=== PATIENT | female | born 1990 | race African-American/Black ===

== ENCOUNTER 2019-10-10 10:32 | Emergency (ER) | payer MEDICAID, OTHER ==
[~2019-10-10] VITALS: Ht 180.3 cm; Wt 104.0 kg
[2019-10-10] MEDS ORDERED: SODIUM CHLORIDE 0.9% 1,000 ML IV ONE (12:19)
[2019-10-10] MEDS ORDERED: KETOROLAC 30MG/ML VIAL IV STA (12:19)
[2019-10-10] MEDS ORDERED: ONDANSETRON HCL 4MG/2ML INJ IV STA ×2 (12:19→15:16)
[2019-10-10 12:39] LABS: BASOPHILS % 0.5 % (0.0-2.0); EOSINOPHILS % 0.5 % (0.0-5.0); HEMATOCRIT. 34.3 % (36.0-48.0); HEMOGLOBIN. 11.1 g/dL (12.0-16.0); LYMPHOCYTES % 18.3 % (20.0-50.0); MEAN CORPUSCULAR HEMOGLOBIN 24.8 pg (28.0-32.0); MEAN CORPUSCULAR VOLUME 76.8 fL (81.0-99.0); MEAN PLATELET VOLUME 9.4 fl (7.4-10.4); MONOCYTES % 10.2 % (2.0-8.0); NEUTROPHILS % 70.5 % (40.0-76.0); PLATELET 350 x1000/uL (130-400); RED BLOOD CELL COUNT 4.46 mill/uL (4.2-5.4); RED CELL DISTRIBUTION WIDTH 17.4 % (11.6-14.6)
[2019-10-10 12:42] LABS: CHLORIDE 106 mEq/L (98-107)
[2019-10-10 12:46] LABS: ETHANOL BLOOD < 10 mg/dL
[2019-10-10 13:42] LABS: CLARITY URINE CLOUDY (CLEAR); COLOR URINE YELLOW (YELLOW); KETONES URINE TRACE (NEGATIVE); LEUKOCYTE ESTERASE URINE NEGATIVE (NEGATIVE); NITRITE URINE NEGATIVE (NEGATIVE); OCCULT BLOOD URINE 1+ (NEGATIVE); PH URINE 5.5 (4.5-8.0); PROTEIN URINE 1+ (NEGATIVE); SPECIFIC GRAVITY URINE 1.034 (1.005-1.030)
[2019-10-10 14:16] LABS: PHENCYCLIDINE URINE SCREEN NEGATIVE (NEGATIVE)
[2019-10-10 14:17] LABS: *AMPHETAMINES SCREEN URINE NEGATIVE (NEGATIVE); *BARBITURATES SCREEN URINE NEGATIVE (NEGATIVE); *BENZODIAZEPINES SCREEN URINE NEGATIVE (NEGATIVE); *COCAINE SCREEN URINE NEGATIVE (NEGATIVE); METHADONE URINE SCREEN NEGATIVE (NEGATIVE)
[2019-10-10 14:18] LABS: OPIATES URINE SCREEN NEGATIVE (NEGATIVE)
[2019-10-10 14:24] LABS: CANNABINOID URINE SCREEN PRESUMTIVE POSITIVE (NEGATIVE)
[2019-10-10] MEDS ORDERED: MORPHINE SULFATE 4 MG/ML CPJ (NOT FOR IM USE) IV STA (15:16)
[2019-10-10 15:44] VITALS: BP 133/65
== END 2019-10-10 15:45 | disposition home or self-care (01) ==
LOC: ER 10:32
DX: R10.33 Periumbilical pain (principal); Z87.891 Personal history of nicotine dependence
CPT/HCPCS: 36415; 74176; 80053; 80305; 80320; 81003; 81025; 83690; 85025; 96374; 96375; 96376; 99285; J1885; J2270; J2405; J7030; G0480

== ENCOUNTER 2019-12-23 16:15 | Inpatient (IN) | payer MEDICAID ==
[~2019-12-23] VITALS: Ht 152.4 cm; Wt 91.0 kg
[~2019-12-23 16:15] MED LIST: CIPR-263 MT; DOCU-150 PO; IBUP-2029 MT; METR500T MT
[2019-12-23] MEDS ORDERED: ONDANSETRON HCL 4MG/2ML INJ IV STA ×2 (17:07→21:05)
[2019-12-23] MEDS ORDERED: SODIUM CHLORIDE 0.9% 1,000 ML IV ONE (17:07)
[2019-12-23] MEDS ORDERED: MORPHINE SULFATE 4 MG/ML CPJ (NOT FOR IM USE) IV STA ×2 (17:07→21:05)
[2019-12-23 17:38] LABS: HEMATOCRIT. 35.3 % (36.0-48.0); MEAN CORPUSCULAR HEMOGLOBIN 24.3 pg (28.0-32.0); MEAN CORPUSCULAR VOLUME 78.1 fL (81.0-99.0); MEAN PLATELET VOLUME 10.3 fl (7.4-10.4); PLATELET 316 x1000/uL (130-400); RED BLOOD CELL COUNT 4.52 mill/uL (4.2-5.4)
[2019-12-23 17:44] LABS: CHLORIDE 111 mEq/L (98-107)
[2019-12-23 17:58] LABS: HCG SCREEN NEGATIVE
[2019-12-23] MEDS ORDERED: MORPHINE SULFATE 4 MG/ML CPJ (NOT FOR IM USE) IV ONE (18:15)
[2019-12-23 18:46] LABS: CLARITY URINE CLEAR (CLEAR); COLOR URINE YELLOW (YELLOW); KETONES URINE 3+ (NEGATIVE); LEUKOCYTE ESTERASE URINE 2+ (NEGATIVE); NITRITE URINE NEGATIVE (NEGATIVE); OCCULT BLOOD URINE 3+ (NEGATIVE); PH URINE 5.5 (4.5-8.0); PROTEIN URINE NEGATIVE (NEGATIVE); SPECIFIC GRAVITY URINE 1.016 (1.005-1.030); UROBILINOGEN URINE 0.2 E.U./dL (0.2-1.0)
[2019-12-23 18:50] LABS: PLATELET ESTIMATE NORMAL
[2019-12-23] MEDS ORDERED: KCL 10MEQ/50ML PREMIX 50 ML IV ONE (19:30)
[2019-12-23] MEDS ORDERED: CEFTRIAXONE 1 G PREMIX 50 ML IV ONE (19:30)
[2019-12-23] MEDS ORDERED: POTASSIUM CHLORIDE 20MEQ TABLET SR PO ONE (19:30)
[2019-12-23] MEDS ORDERED: ONDANSETRON HCL 4MG/2ML INJ IV PRN (22:30)
[2019-12-23] MEDS ORDERED: CLONIDINE 0.1MG TABLET PO PRN (22:30)
[2019-12-23] MEDS ORDERED: MAGNESIUM/ALUMINUM HYDROXIDE/SIMETHICONE 30ML UDC PO PRN (22:30)
[2019-12-23] MEDS ORDERED: LEVOFLOXACIN 500MG PREMIX 100 ML IV SCH (22:30)
[2019-12-23] MEDS ORDERED: PANTOPRAZOLE SODIUM 40 MG/VIAL IV SCH (22:30)
[2019-12-23] MEDS ORDERED: ACETAMINOPHEN 325MG TABLET PO PRN (22:30)
[2019-12-23] MEDS ORDERED: KETOROLAC 15MG/ML VIAL IV PRN (22:30)
[2019-12-23] MEDS ORDERED: DEXT 5%/0.45% NACL KCL 10MEQ/L 1,000 ML IV SCH (23:30)
[2019-12-24 03:35] VITALS: BP 132/82
[2019-12-24] MEDS ORDERED: AMLODIPINE 10MG TABLET PO SCH (09:00)
[2019-12-24 09:26] LABS: *AMPHETAMINES SCREEN URINE NEGATIVE (NEGATIVE); *BARBITURATES SCREEN URINE NEGATIVE (NEGATIVE); *BENZODIAZEPINES SCREEN URINE NEGATIVE (NEGATIVE); METHADONE URINE SCREEN NEGATIVE (NEGATIVE)
[2019-12-24 09:27] LABS: PHENCYCLIDINE URINE SCREEN NEGATIVE (NEGATIVE)
[2019-12-24 09:29] LABS: *COCAINE SCREEN URINE NEGATIVE (NEGATIVE)
[2019-12-24 09:52] LABS: CANNABINOID URINE SCREEN PRESUMTIVE POSITIVE (NEGATIVE); OPIATES URINE SCREEN PRESUMTIVE POSITIVE (NEGATIVE)
[2019-12-24] MEDS ORDERED: LEVOFLOXACIN 500MG PREMIX 100 ML IV SCH (21:00)
== END 2019-12-24 05:09 | disposition left against medical advice (07) | DRG 251 ==
LOC: ER 16:20 → MICUSO 20:55 → EDBEDREQSVC 22:05 → 6EST 12-24 04:21
PROVIDERS: ADMIT Hospitalist; ATTEND Hospitalist
DX: R10.9 Unspecified abdominal pain (principal); Z79.2 Long term (current) use of antibiotics; Z79.899 Other long term (current) drug therapy; N39.0 Urinary tract infection, site not specified; E87.6 Hypokalemia
CPT/HCPCS: 36415; 71045; 74176; 80053; 80305; 81003; 84703; 85025; 93005; 99285; C9113; J0696; J1956; J2270; J2405; J3480; J7030

== ENCOUNTER 2020-05-26 11:56 | Emergency (ER) | payer MEDICAID ==
[~2020-05-26] VITALS: Ht 180.3 cm; Wt 105.0 kg
[2020-05-26] MEDS ORDERED: KETOROLAC 30MG/ML VIAL IV STA (12:12)
[2020-05-26] MEDS ORDERED: ONDANSETRON HCL 4MG/2ML INJ IV STA ×2 (12:12→14:16)
[2020-05-26] MEDS ORDERED: LORAZEPAM 2MG/ML CPJ IV ONE (12:15)
[2020-05-26] MEDS ORDERED: SODIUM CHLORIDE 0.9% 1,000 ML IV ONE (12:15)
[2020-05-26 12:25] LABS: BASOPHILS % 0.6 % (0.0-2.0); EOSINOPHILS % 0.1 % (0.0-5.0); HEMATOCRIT. 36.7 % (36.0-48.0); HEMOGLOBIN. 11.5 g/dL (12.0-16.0); LYMPHOCYTES % 10.8 % (20.0-50.0); MEAN CORPUSCULAR HEMOGLOBIN 23.8 pg (28.0-32.0); MEAN CORPUSCULAR VOLUME 75.9 fL (81.0-99.0); MEAN PLATELET VOLUME 8.8 fl (7.4-10.4); MONOCYTES % 5.1 % (2.0-8.0); NEUTROPHILS % 83.4 % (40.0-76.0); PLATELET 345 x1000/uL (130-400); RED BLOOD CELL COUNT 4.84 mill/uL (4.2-5.4); RED CELL DISTRIBUTION WIDTH 17.5 % (11.6-14.6)
[2020-05-26 12:36] LABS: HCG SCREEN NEGATIVE
[2020-05-26 12:45] LABS: PROTHROMBIN TIME 10.3 sec (9.6-11.0)
[2020-05-26 12:46] LABS: CLARITY URINE CLEAR (CLEAR); COLOR URINE YELLOW (YELLOW); KETONES URINE 1+ (NEGATIVE); LEUKOCYTE ESTERASE URINE NEGATIVE (NEGATIVE); NITRITE URINE NEGATIVE (NEGATIVE); OCCULT BLOOD URINE 1+ (NEGATIVE); PROTEIN URINE TRACE (NEGATIVE); SPECIFIC GRAVITY URINE 1.025 (1.005-1.030); UROBILINOGEN URINE 0.2 E.U./dL (0.2-1.0)
[2020-05-26 12:52] LABS: CHLORIDE 108 mEq/L (98-107)
[2020-05-26] MEDS ORDERED: MORPHINE SULFATE 4 MG/ML CPJ (NOT FOR IM USE) IV STA (14:16)
[2020-05-26 15:32] VITALS: BP 125/68
== END 2020-05-26 16:15 | disposition home or self-care (01) ==
LOC: ER 12:24
DX: R10.9 Unspecified abdominal pain (principal)
CPT/HCPCS: 36415; 74176; 80053; 81003; 81025; 83690; 84703; 85025; 85610; 96361; 96374; 96375; 96376; 99285; J1885; J2060; J2270; J2405; J7030

== ENCOUNTER 2020-09-09 10:25 | Emergency (ER) | payer MEDICAID ==
[~2020-09-09] VITALS: Ht 180.3 cm; Wt 104.0 kg
[2020-09-09 10:36] VITALS: BP 142/93
[2020-09-09] MEDS ORDERED: TOPUD PO (10:41)
[2020-09-09] MEDS ORDERED: KETOROLAC 60MG/2ML VIAL IM ONE (11:00)
[2020-09-09] MEDS ORDERED: IBUPROFEN 400MG TABLET PO ONE (11:15)
[2020-09-09] MEDS ORDERED: ACETAMINOPHEN 325MG TABLET PO ONE (11:15)
[2020-09-09] MEDS ORDERED: NAPR-681 MT (11:50)
== END 2020-09-09 12:52 | disposition home or self-care (01) ==
LOC: ER 10:25
DX: M25.561 Pain in right knee (principal); F12.10 Cannabis abuse, uncomplicated
CPT/HCPCS: 29505; 73562; 99283; J1885

== ENCOUNTER 2020-11-08 08:31 | Emergency (ER) | payer MEDICAID ==
[~2020-11-08] VITALS: Ht 180.3 cm; Wt 105.0 kg
[~2020-11-08 08:31] MED LIST changes: +NAPR-681 MT; +TOPUD PO
[2020-11-08] MEDS ORDERED: MORPHINE SULFATE 4 MG/ML CPJ (NOT FOR IM USE) IV STA (09:02)
[2020-11-08] MEDS ORDERED: DICYCLOMINE 10 MG/5 ML ORAL SYR PO ONE (09:15)
[2020-11-08] MEDS ORDERED: VISCOUS LIDOCAINE 2% 15 ML UDC PO ONE (09:15)
[2020-11-08] MEDS ORDERED: MAGNESIUM/ALUMINUM HYDROXIDE/SIMETHICONE 30ML UDC PO ONE (09:15)
[2020-11-08 09:25] LABS: BASOPHILS % 0.2 % (0.0-2.0); HEMATOCRIT. 34.5 % (36.0-48.0); MEAN CORPUSCULAR HEMOGLOBIN 23.9 pg (28.0-32.0); MEAN PLATELET VOLUME 8.7 fl (7.4-10.4); MONOCYTES % 13.2 % (2.0-8.0); NEUTROPHILS % 75.6 % (40.0-76.0); PLATELET 372 x1000/uL (130-400); RED CELL DISTRIBUTION WIDTH 17.8 % (11.6-14.6)
[2020-11-08 09:33] LABS: CHLORIDE 108 mEq/L (98-107)
[2020-11-08] MEDS ORDERED: MORPHINE SULFATE 4 MG/ML CPJ (NOT FOR IM USE) IV ONE (10:45)
[2020-11-08 10:47] LABS: HCG SCREEN NEGATIVE
[2020-11-08] MEDS ORDERED: OMEP20TA2 PO (12:47)
[2020-11-08 13:24] VITALS: BP 119/62
== END 2020-11-08 13:26 | disposition home or self-care (01) ==
LOC: ER 08:31
DX: R07.89 Other chest pain (principal); F12.10 Cannabis abuse, uncomplicated
CPT/HCPCS: 36415; 71045; 74176; 80053; 81025; 83690; 83880; 84484; 84703; 85025; 93005; 96374; 96376; 99285; J2270; Z7610

== ENCOUNTER 2021-01-01 02:41 | Emergency (ER) | payer MEDICAID ==
[~2021-01-01] VITALS: Ht 180.3 cm; Wt 105.0 kg
[~2021-01-01 02:41] MED LIST changes: +OMEP20TA2 PO
[2021-01-01] MEDS ORDERED: ONDANSETRON HCL 4MG/2ML INJ IV STA (03:14)
[2021-01-01] MEDS ORDERED: MORPHINE SULFATE 4 MG/ML CPJ (NOT FOR IM USE) IV STA (03:14)
[2021-01-01] MEDS ORDERED: SODIUM CHLORIDE 0.9% 1,000 ML IV ONE (03:15)
[2021-01-01 03:51] LABS: BASOPHILS % 0.4 % (0.0-2.0); HEMATOCRIT. 35.6 % (36.0-48.0); HEMOGLOBIN. 11.5 g/dL (12.0-16.0); LYMPHOCYTES % 19.4 % (20.0-50.0); MEAN CORPUSCULAR HEMOGLOBIN 23.8 pg (28.0-32.0); MEAN CORPUSCULAR VOLUME 73.4 fL (81.0-99.0); MEAN PLATELET VOLUME 8.7 fl (7.4-10.4); NEUTROPHILS % 69.2 % (40.0-76.0); PLATELET 408 x1000/uL (130-400); RED BLOOD CELL COUNT 4.85 mill/uL (4.2-5.4); RED CELL DISTRIBUTION WIDTH 17.5 % (11.6-14.6)
[2021-01-01 03:59] LABS: CHLORIDE 106 mEq/L (98-107)
[2021-01-01 04:03] LABS: ETHANOL BLOOD < 10 mg/dL
[2021-01-01 04:05] LABS: HCG SCREEN NEGATIVE
[2021-01-01 04:12] LABS: CLARITY URINE CLOUDY (CLEAR); COLOR URINE YELLOW (YELLOW); KETONES URINE 2+ (NEGATIVE); LEUKOCYTE ESTERASE URINE NEGATIVE (NEGATIVE); NITRITE URINE NEGATIVE (NEGATIVE); OCCULT BLOOD URINE 3+ (NEGATIVE); PH URINE 5.5 (4.5-8.0); PROTEIN URINE 1+ (NEGATIVE); SPECIFIC GRAVITY URINE 1.034 (1.005-1.030)
[2021-01-01] MEDS ORDERED: POTASSIUM CHLORIDE 20MEQ TABLET SR PO ONE (04:15)
[2021-01-01] MEDS ORDERED: MAGNESIUM/ALUMINUM HYDROXIDE/SIMETHICONE 30ML UDC PO ONE (04:15)
[2021-01-01] MEDS ORDERED: FAMOTIDINE 20MG/2ML VIAL IV ONE (04:15)
[2021-01-01 04:32] LABS: *BARBITURATES SCREEN URINE NEGATIVE (NEGATIVE)
[2021-01-01 04:33] LABS: *AMPHETAMINES SCREEN URINE NEGATIVE (NEGATIVE); *BENZODIAZEPINES SCREEN URINE NEGATIVE (NEGATIVE); *COCAINE SCREEN URINE NEGATIVE (NEGATIVE); METHADONE URINE SCREEN NEGATIVE (NEGATIVE); PHENCYCLIDINE URINE SCREEN NEGATIVE (NEGATIVE)
[2021-01-01 04:34] LABS: CANNABINOID URINE SCREEN PRESUMTIVE POSITIVE (NEGATIVE); OPIATES URINE SCREEN PRESUMTIVE POSITIVE (NEGATIVE)
[2021-01-01] MEDS ORDERED: IOHEXOL-300 100 ML BOTTLE ONE (05:29)
[2021-01-01] MEDS ORDERED: MORPHINE SULFATE 4 MG/ML CPJ (NOT FOR IM USE) IV ONE (05:30)
[2021-01-01] MEDS ORDERED: FAMO-135 MT ×2 (05:51)
[2021-01-01] MEDS ORDERED: OMEP20TA15 MT (06:08)
[2021-01-01 06:20] VITALS: BP 124/69
== END 2021-01-01 06:28 | disposition home or self-care (01) ==
LOC: ER 02:41
DX: R10.13 Epigastric pain (principal); F12.10 Cannabis abuse, uncomplicated; K21.9 Gastro-esophageal reflux disease without esophagitis
CPT/HCPCS: 36415; 71045; 74177; 80053; 80305; 80320; 81003; 81025; 83605; 83690; 84703; 85025; 85610; 96361; 96374; 96375; 96376; 99285; J2270; J2405; J3490; J7030; Q9967; G0480

== ENCOUNTER 2021-01-30 10:05 | Emergency (ER) | payer MEDICAID ==
[~2021-01-30] VITALS: Ht 180.3 cm; Wt 101.0 kg
[~2021-01-30 10:05] MED LIST changes: +OMEP20TA15 MT
[2021-01-30] MEDS ORDERED: ONDANSETRON HCL 4MG/2ML INJ IV STA (11:20)
[2021-01-30] MEDS ORDERED: MORPHINE SULFATE 4 MG/ML CPJ (NOT FOR IM USE) IV STA (11:20)
[2021-01-30] MEDS ORDERED: SODIUM CHLORIDE 0.9% 1,000 ML IV ONE (11:30)
[2021-01-30] MEDS ORDERED: MORPHINE SULFATE 2 MG/ML CPJ (NOT FOR IM USE) IV SCH (12:00)
[2021-01-30 12:03] LABS: BASOPHILS % 0.1 % (0.0-2.0); HEMATOCRIT. 34.4 % (36.0-48.0); HEMOGLOBIN. 11.2 g/dL (12.0-16.0); LYMPHOCYTES % 13.2 % (20.0-50.0); MEAN CORPUSCULAR HEMOGLOBIN 23.8 pg (28.0-32.0); MEAN CORPUSCULAR VOLUME 73.4 fL (81.0-99.0); MEAN PLATELET VOLUME 8.8 fl (7.4-10.4); MONOCYTES % 11.6 % (2.0-8.0); NEUTROPHILS % 75.1 % (40.0-76.0); PLATELET 377 x1000/uL (130-400); RED BLOOD CELL COUNT 4.69 mill/uL (4.2-5.4); RED CELL DISTRIBUTION WIDTH 17.3 % (11.6-14.6)
[2021-01-30 12:09] LABS: CHLORIDE 107 mEq/L (98-107)
[2021-01-30 12:12] LABS: PROTHROMBIN TIME 11.2 sec (9.6-11.0)
[2021-01-30 12:28] LABS: CLARITY URINE TURBID (CLEAR); KETONES URINE 1+ (NEGATIVE); LEUKOCYTE ESTERASE URINE TRACE (NEGATIVE); NITRITE URINE NEGATIVE (NEGATIVE); OCCULT BLOOD URINE 3+ (NEGATIVE); PH URINE 5.5 (4.5-8.0); PROTEIN URINE 2+ (NEGATIVE); SPECIFIC GRAVITY URINE 1.035 (1.005-1.030); UROBILINOGEN URINE 0.2 E.U./dL (0.2-1.0)
[2021-01-30 12:35] LABS: COLOR URINE DARK YELLOW (YELLOW)
[2021-01-30 13:04] LABS: HCG SCREEN NEGATIVE
[2021-01-30] MEDS ORDERED: MAG-55 MT (14:57)
[2021-01-30] MEDS ORDERED: NITR-87 MT (15:23)
[2021-01-30] MEDS ORDERED: NITROFURANTOIN 100MG M/M CAPSULE PO ONE (15:30)
[2021-01-30 15:49] VITALS: BP 131/74
== END 2021-01-30 15:59 | disposition home or self-care (01) ==
LOC: ER 10:05
DX: R10.13 Epigastric pain (principal); N39.0 Urinary tract infection, site not specified; K21.9 Gastro-esophageal reflux disease without esophagitis; F12.10 Cannabis abuse, uncomplicated; E66.9 Obesity, unspecified; Z68.31 Body mass index [BMI] 31.0-31.9, adult; Z87.19 Personal history of other diseases of the digestive system
CPT/HCPCS: 36415; 71045; 74176; 80053; 81003; 81025; 83605; 83690; 84703; 85025; 85610; 96361; 96374; 96375; 99285; J2270; J2405; J7030; Z7610

== ENCOUNTER 2021-05-09 12:05 | Emergency (ER) | payer MEDICAID ==
[~2021-05-09] VITALS: Ht 180.3 cm; Wt 104.0 kg
[~2021-05-09 12:05] MED LIST changes: +MAG-55 MT; +NITR-87 MT
[2021-05-09] MEDS ORDERED: SODIUM CHLORIDE 0.9% 1,000 ML IV ONE (12:15)
[2021-05-09 12:53] LABS: BASOPHILS % 0.4 % (0.0-2.0); EOSINOPHILS % 0.5 % (0.0-5.0); HEMATOCRIT. 36.3 % (36.0-48.0); HEMOGLOBIN. 11.4 g/dL (12.0-16.0); LYMPHOCYTES % 20.8 % (20.0-50.0); MEAN CORPUSCULAR HEMOGLOBIN 23.3 pg (28.0-32.0); MEAN CORPUSCULAR VOLUME 74.3 fL (81.0-99.0); MONOCYTES % 9.5 % (2.0-8.0); NEUTROPHILS % 68.8 % (40.0-76.0); PLATELET 310 x1000/uL (130-400); RED BLOOD CELL COUNT 4.89 mill/uL (4.2-5.4); RED CELL DISTRIBUTION WIDTH 18.2 % (11.6-14.6)
[2021-05-09 12:57] LABS: CHLORIDE 109 mEq/L (98-107)
[2021-05-09] MEDS ORDERED: METOCLOPRAMIDE HCL 10MG/2ML VIAL IV ONE (18:30)
[2021-05-09] MEDS ORDERED: ONDANSETRON HCL 4MG/2ML INJ IV ONE (18:30)
[2021-05-09] MEDS ORDERED: HALOPERIDOL LACTATE 5MG/ML VIAL IM ONE (18:30)
[2021-05-09] MEDS ORDERED: DIPHENHYDRAMINE 50MG/ML VIAL IV ONE (18:30)
[2021-05-09] MEDS ORDERED: FAMOTIDINE 20MG/2ML VIAL IV ONE (21:15)
[2021-05-09] MEDS ORDERED: MAGNESIUM/ALUMINUM HYDROXIDE/SIMETHICONE 30ML UDC PO ONE (21:15)
[2021-05-09] MEDS ORDERED: MORPHINE SULFATE 4 MG/ML CPJ (NOT FOR IM USE) IV ONE (22:30)
[2021-05-09 22:41] LABS: CLARITY URINE TURBID (CLEAR); COLOR URINE YELLOW (YELLOW); KETONES URINE 4+ (NEGATIVE); LEUKOCYTE ESTERASE URINE NEGATIVE (NEGATIVE); NITRITE URINE NEGATIVE (NEGATIVE); OCCULT BLOOD URINE 2+ (NEGATIVE); PH URINE 5.5 (4.5-8.0); PROTEIN URINE 1+ (NEGATIVE); SPECIFIC GRAVITY URINE 1.035 (1.005-1.030); UROBILINOGEN URINE 0.2 E.U./dL (0.2-1.0)
[2021-05-09 23:30] VITALS: BP 128/82
== END 2021-05-09 23:32 | disposition home or self-care (01) ==
LOC: ER 12:05
DX: R11.2 Nausea with vomiting, unspecified (principal); F12.10 Cannabis abuse, uncomplicated; Z79.899 Other long term (current) drug therapy
CPT/HCPCS: 36415; 76700; 80053; 81003; 83690; 85025; 93005; 96361; 96374; 96375; 99285; J2270; J2405; J2765; J3490; J7030; Z7610

== ENCOUNTER 2023-09-23 17:08 | Emergency (ER) | payer MEDICAID, OTHER ==
[~2023-09-23] VITALS: Ht 180.3 cm; Wt 113.4 kg
[~2023-09-23 17:08] MED LIST changes: -OMEP20TA2 PO; +OMEP20TA23 PO
[2023-09-23 17:18] VITALS: O2SAT 100
[2023-09-23] MEDS ORDERED: BO1 TP (18:38)
[2023-09-23] MEDS: BACITRACIN 14GM TUBE TOP ONE (18:45)
[2023-09-23] MEDS: BACITRACIN ZINC OINT UDPKT TOP ONE (18:59)
[2023-09-23 19:02] VITALS: BP 135/82; PULSE 80; RESP 16; TEMP 98.6
== END 2023-09-23 19:04 | disposition home or self-care (01) ==
LOC: ER 17:08
DX: T22.111A Burn of first degree of right forearm, initial encounter (principal); T31.0 Burns involving less than 10% of body surface; F12.10 Cannabis abuse, uncomplicated; Z79.899 Other long term (current) drug therapy; X08.8XXA Exposure to other specified smoke, fire and flames, initial encounter; Y93.89 Activity, other specified; Y92.89 Other specified places as the place of occurrence of the external cause; Y99.8 Other external cause status
CPT/HCPCS: 16000; 99282

== ENCOUNTER 2023-12-23 05:22 | Emergency (ER) | payer MEDICAID, OTHER ==
[~2023-12-23] VITALS: Ht 180.3 cm; Wt 105.0 kg
[~2023-12-23 05:22] MED LIST changes: +BO1 TP
[2023-12-23 05:41] VITALS: TEMP 98.4; O2SAT 100
[2023-12-23 06:13] LABS: BASOPHILS % 0.7 % (0.0-2.0); DIFFERENTIAL COMMENT 0; HEMATOCRIT. 39.5 % (36.0-48.0); HEMOGLOBIN. 12.5 g/dL (12.0-16.0); LYMPHOCYTES % 13.5 % (20.0-50.0); MEAN CORPUSCULAR HEMOGLOBIN 24.7 pg (28.0-32.0); MEAN CORPUSCULAR HGB CONC 31.6 g/dL (31.0-37.0); MEAN CORPUSCULAR VOLUME 78.2 fL (81.0-99.0); MONOCYTES % 7.1 % (2.0-8.0); NEUTROPHILS % 78.7 % (40.0-76.0); PLATELET 287 x1000/uL (130-400); RED BLOOD CELL COUNT 5.05 mill/uL (4.2-5.4); RED CELL DISTRIBUTION WIDTH 18.3 % (11.6-14.6); WHITE BLOOD COUNT 13.1 x1000/uL (4.5-11.0)
[2023-12-23] MEDS: FAMOTIDINE 20MG/2ML VIAL IV STA (06:13)
[2023-12-23] MEDS: SODIUM CHLORIDE 0.9% 1,000 ML IV ONE (06:13)
[2023-12-23] MEDS: ONDANSETRON HCL 4MG/2ML INJ IV STA (06:13)
[2023-12-23] MEDS: MORPHINE SULFATE 4 MG/ML INJ (FOR IV/IM USE) IV STA (06:13)
[2023-12-23 06:23] LABS: CARBON DIOXIDE 23 mEq/L (21-32); CHLORIDE 106 mEq/L (98-107); POTASSIUM 3.6 mEq/L (3.5-5.1); PROTHROMBIN TIME 11.1 sec (9.6-11.0); SODIUM 139 mEq/L (136-145)
[2023-12-23 06:24] LABS: CALCIUM 10.1 mg/dL (8.7-10.4)
[2023-12-23 06:29] LABS: GLUCOSE 132 mg/dL (70-105); UREA NITROGEN BLOOD 13 mg/dL (9-23)
[2023-12-23 06:30] LABS: ALANINE AMINOTRANSFERASE 11 IU/L (10-49)
[2023-12-23 06:31] LABS: ALBUMIN 5.2 g/dL (3.2-4.8); ASPARTATE AMINOTRANSFERASE 20 IU/L (<34); BILIRUBIN DIRECT 0.1 mg/dL (<=3.0); BILIRUBIN TOTAL 0.6 mg/dL (0.1-1.0)
[2023-12-23 06:48] LABS: HCG SCREEN NEGATIVE
[2023-12-23] MEDS: MORPHINE SULFATE 4 MG/ML INJ (FOR IV/IM USE) IV ONE (07:03)
[2023-12-23] MEDS: KETOROLAC 30MG/ML VIAL IV ONE (08:26)
[2023-12-23 08:39] LABS: CLARITY URINE CLOUDY (CLEAR); COLOR URINE DARK YELLOW (YELLOW); GLUCOSE URINE NEGATIVE (NEGATIVE); KETONES URINE 4+ (NEGATIVE); LEUKOCYTE ESTERASE URINE NEGATIVE (NEGATIVE); NITRITE URINE NEGATIVE (NEGATIVE); OCCULT BLOOD URINE 2+ (NEGATIVE); PROTEIN URINE 2+ (NEGATIVE); SPECIFIC GRAVITY URINE 1.038 (1.005-1.030)
[2023-12-23 08:56] LABS: BACTERIA URINE 1+; SQUAMOUS EPITHELIAL CELL URINE 3+ /lpf (RARE/1+); WBC URINE 0-2 /hpf (0-2); YEAST URINE NONE SEEN
[2023-12-23 08:57] LABS: MUCUS URINE 1+ /lpf (< = 2+)
[2023-12-23] MEDS ORDERED: TERB30CR8 TP (08:58)
[2023-12-23] MEDS ORDERED: ONDA4TAB50 PO (08:58)
[2023-12-23] MEDS ORDERED: OXYC-100 PO (08:58)
[2023-12-23 09:08] VITALS: BP 107/71; PULSE 49; RESP 16; O2SAT 100
== END 2023-12-23 09:11 | disposition home or self-care (01) ==
LOC: ER 05:22 → EDBEDREQ 07:00 → ER 09:11
DX: B35.3 Tinea pedis (principal); N23 Unspecified renal colic; K21.9 Gastro-esophageal reflux disease without esophagitis; F12.90 Cannabis use, unspecified, uncomplicated; Z79.899 Other long term (current) drug therapy
CPT/HCPCS: 80076; 80048; 81003; 84703; 83690; 85025; 85610; 36415; 74176; 96361; 96374; 96375; 96376; 99285; J3490; J1885; J2405; J2270; J7030; Z7610 ×3